=== PATIENT | male | born 1965 | race Caucasian/White ===

== ENCOUNTER 2018-03-19 08:09 | Day surgery (SDC) | payer BC ==
[~2018-03-19 08:09] MED LIST: ACETAMINOPHEN 1,000 MG/100 ML BTL IV ONE
[2018-03-19] MEDS ORDERED: MIDAZOLAM HCL 2MG/2ML VIAL IV ONE (08:10)
[2018-03-19] MEDS ORDERED: LIDOCAINE 2% MDV (20MG/ML) 20ML VIAL IV ONE (08:10)
[2018-03-19] MEDS ORDERED: KETOROLAC 30 MG/ML VIAL IVP ONE (08:10)
[2018-03-19] MEDS ORDERED: FENTANYL PF 100MCG/2ML VIAL IV ONE (08:10)
[2018-03-19] MEDS ORDERED: BUPIVACAINE 0.25% W/EPI MPF 30ML VIAL IVP ONE (08:10)
[2018-03-19] MEDS ORDERED: PROPOFOL 10 MG/ML VIAL IV ONE (08:10)
[2018-03-19] MEDS ORDERED: ONDANSETRON HCL IV 4 MG/2 ML VIAL IVP ONE (08:10)
[2018-03-19] MEDS ORDERED: SEVOFLURANE 250 ML INH ONE (08:10)
--- NOTE | 2018-03-20 12:40 | Operative Note ---
DATE OF SURGERY: 03/19/2018 Surgeon: Johnny Paredes DO PREOPERATIVE DIAGNOSES: 1. Torn medial meniscus of the right knee. 2. Chondromalacia right knee. POSTOPERATIVE DIAGNOSES: 1. Torn medial meniscus right knee. 2. Medial mid patellar plica right knee. 3. Chondromalacia of the medial femoral condyle, patella, and trochlea right knee. OPERATION: 1. Arthroscopic partial medial meniscectomy right knee. 2. Arthroscopic resection of medial mid patella plica right knee. 3. Arthroscopic chondroplasty of medial femoral condyle, patella, and trochlea right knee. DESCRIPTION OF PROCEDURE: This 52-year-old male was taken to the operating room and placed in the supine position on the operating room table. General anesthesia was induced. The right lower extremity was elevated. It was exsanguinated and the tourniquet inflated to 300 mmHg. Arthroscopic knee carter applied. The right knee prepped with Hibiclens and draped in the usual sterile fashion. An inferolateral portal was established for the 4 mm arthroscope, and initial evaluation of the joint demonstrated normal appearance of the suprapatellar pouch but the patient demonstrated advanced degenerative disease of the patella with the medial facet of the patella showing grade 4 changes with severe grade 3 changes noted throughout the median ridge and lateral facet. Utilizing the rotating shaver, we resected unstable fragments of the articular cartilage of the patella. The trochlea also demonstrated some degenerative change but it was not grossly unstable except for a small flap, and that was resected with the rotating shaver. Medial mid patella plica was resected with the rotating shaver. It was thick and fibrotic and partially torn. The medial compartment was entered and grade 2 chondromalacia of the medial femoral condyle was present throughout the entire weightbearing surface. There was also a severely complex tear of the posterior horn and body of the medial meniscus extending from the root all the way around to the 3-o'clock position. Utilizing the basket forceps and rotating shaver, we resected flaps and smoothed and contoured horizontal cleavage components to a stable rim. There was approximately 3 mm of rim remaining at the apex of the tear, which was at approximately the 12-o'clock position. The meniscus was then re-probed and confirmed to be stable. The intracondylar notch was examined and found to be normal. The lateral compartment was entered and probing of the lateral meniscus and articular cartilage of the lateral compartment did not reveal any pathology. The joint was suctioned. The instruments were removed. The portals closed with 4-0 nylon suture and 0.25% Marcaine with epinephrine was injected into the arthroscopic portals. Sterile dressings were applied. The patient taken to the recovery room in satisfactory condition. GROSS PATHOLOGY: This patient demonstrated severely complex tear of the posterior horn of the medial meniscus. In addition, a fibrotic and partially torn medial mid patella plica was present. Grade 4 chondromalacia of the patella, grade 3 chondromalacia of the trochlea, and grade 2 chondromalacia of the medial femoral condyle was present as described above. CC: DO SISI Giordano
== END 2018-03-19 12:00 | disposition home or self-care (01) ==
LOC: SUR 08:09
PROVIDERS: ATTEND Orthopaedic Surgery
DX: S83.231A Complex tear of medial meniscus, current injury, right knee, initial encounter (principal); M67.51 Plica syndrome, right knee; M22.41 Chondromalacia patellae, right knee
CPT/HCPCS: J1885; J2405

== ENCOUNTER 2018-12-05 10:47 | Day surgery (SDC) | payer BC ==
[~2018-12-05 10:47] MED LIST changes: -ACETAMINOPHEN 1,000 MG/100 ML BTL IV ONE; +ACETAMINOPHEN 1,000 MG/100 ML BTL IVPB ONE
[2018-12-05] MEDS ORDERED: MIDAZOLAM HCL 2MG/2ML VIAL IV ONE (10:48)
[2018-12-05] MEDS ORDERED: FENTANYL PF 100MCG/2ML VIAL IV ONE (10:48)
[2018-12-05] MEDS ORDERED: ONDANSETRON HCL IV 4 MG/2 ML VIAL IVP ONE (10:48)
[2018-12-05] MEDS ORDERED: PROPOFOL 10 MG/ML VIAL IV ONE (10:48)
[2018-12-05] MEDS ORDERED: KETOROLAC 30 MG/ML VIAL IVP ONE (10:48)
[2018-12-05] MEDS ORDERED: SEVOFLURANE 250 ML INH ONE (10:48)
[2018-12-05] MEDS ORDERED: DEXAMETHASONE 4 MG/ML 1ML VIAL IVP ONE (10:48)
[2018-12-05] MEDS ORDERED: RINGERS SOLUTION,LACTATED 1,000 ML IV ONE (11:25)
[2018-12-05] MEDS ORDERED: BUPIVACAINE 0.25% MPF 30ML VIAL IVP ONE (12:57)
[2018-12-05] MEDS ORDERED: HYDROCODONE/APAP 5/325MG TABLET PO ONE (13:44)
--- NOTE | 2018-12-06 08:50 | Operative Note ---
DATE OF SURGERY: 12/05/2018 SURGEON: Johnny Paredes DO PREOPERATIVE DIAGNOSES: 1. Torn medial meniscus, left knee. 2. Chondromalacia, left knee. POSTOPERATIVE DIAGNOSES: 1. Torn medial and lateral meniscus, left knee. 2. Medial mid patella plica, left knee. 3. Chondromalacia of the medial femoral condyle, patella, and trochlea, left knee. OPERATION: 1. Arthroscopic partial medial and lateral meniscectomy, left knee. 2. Arthroscopic resection of medial mid patella plica, left knee. 3. Arthroscopic chondroplasty of the medial femoral condyle and patella, left knee. DESCRIPTION OF PROCEDURE: This 53-year-old male was taken to the operating room and placed in the supine position on the operating room table where general anesthesia was administered. The left lower extremity was elevated, exsanguinated, and the tourniquet inflated to 300 mmHg. Arthroscopic knee carter applied. Left knee prepped with Hibiclens and draped in the usual sterile fashion. An inferolateral portal was established for the 4 mm arthroscope, and initial evaluation of the joint demonstrated normal appearance of the suprapatellar pouch but he did have a very thickened and fibrotic medial mid patella plica. This was resected through an inferomedial portal. There was also evidence of significant grade 2 chondromalacia of the median ridge at the patella with loose fragments of articular cartilage being present, and these were resected and stabilized with the rotating shaver. There was a grade 2 change in the center of the trochlea but it was not unstable and it was not further disturbed. The medial compartment was entered, and there was very severe chondromalacia of the medial femoral condyle with grade 3 changes noted, and a chondroplasty was performed there to stabilize the articular cartilage. A complex tear of the posterior horn of the medial meniscus was also present. This was both horizontal cleavage and flap components. The flap was pulled down from its position behind the medial femoral condyle and then subsequently resected with a rotating shaver. Utilizing the basket forceps, we resected back to the apex of the tear which was at approximately the 10:30 position and then tapered in each direction to form a smooth contoured meniscal surface, which was re-probed after resection and found to be stable. The intracondylar notch was examined and found to be normal. The lateral compartment was entered, and some free edge fraying of the body of the lateral meniscus was present. This was resected with the rotating shaver. Probing of the remainder of the meniscus demonstrated normal findings and it was not then further disturbed. The cartilage at the lateral compartment appeared normal. The joint was copiously irrigated and flushed. Chips of meniscal tissue removed. The joint suctioned and the portals infiltrated with 0.25% Marcaine with epinephrine. Sterile dressings were applied, tourniquet and knee carter released, and the patient taken to the recovery room in satisfactory condition. GROSS PATHOLOGY: This patient demonstrated advanced grade 3 changes of the entire weightbearing surface of the medial femoral condyle and grade 2 changes of the median ridge of the patella and grade 2 changes noted in the center of the trochlea. There was fibrotic thickened medial mid patella plica which was resected and a complex tear of the medial meniscus as described above. CC: DO SISI Giordano
== END 2018-12-05 14:27 | disposition home or self-care (01) ==
LOC: SUR 10:47
PROVIDERS: ATTEND Orthopaedic Surgery
DX: S83.232A Complex tear of medial meniscus, current injury, left knee, initial encounter (principal); S83.282A Other tear of lateral meniscus, current injury, left knee, initial encounter; M67.52 Plica syndrome, left knee; M94.262 Chondromalacia, left knee
CPT/HCPCS: 29880; 29875; 01400; J1885; J2405; J3010; J7120